=== PATIENT | female | born 2000 | race Caucasian/White ===

== ENCOUNTER 2023-01-04 13:48 | Outpatient (OUT) | payer OTHER, SELFPAY ==
--- NOTE | 2023-01-04 13:57 | US_ITS ---
[place] [id number] Patient Name: ECTOR PEDERSEN MRN: [id number] date: 2000 Sex: F Assigned Patient Location: US Current Patient Location: US Accession/Order Number: [id number] Exam Date: 01/04/2023 13:58 Report Date: 01/04/2023 16:29 At the request of: TIMOTHY LACKEY Procedure: US venous doppler LE RT EXAMINATION: US venous doppler LE RT HISTORY: Pain In Right Lower Leg M79.661 COMPARISON: No relevant comparison available. TECHNIQUE: Grayscale, color and Doppler FINDINGS: Region: Right leg Thrombus: None Flow: Normal Augmentation: Normal Compressibility: Normal In the area of the patient's pain right anterior lateral thigh, no ultrasound abnormality is observed US/US venous doppler LE RT IMPRESSION: No deep or superficial vein thrombus in the right leg *Exam performed in accordance with [facility] practice guidelines- Peripheral venous ultrasound, September 05, 2009. Electronically authenticated by: JUAN ACEVES Date: 01/04/2023 16:29
[2023-01-11 12:09] LABS: HLA B 27 Disease Association Negative (.)
== END 2023-01-04 13:49 | disposition home or self-care (01) ==
LOC: US 13:51
PROVIDERS: PCP Nurse Practitioner Family; Visit Provider Nurse Practitioner Family
DX: M79.661 Pain in right lower leg (principal); R60.9 Edema, unspecified; R53.83 Other fatigue
CPT/HCPCS: 36415; 81374; 93971

== ENCOUNTER 2023-01-15 11:00 | Emergency (ER) | payer OTHER, SELFPAY ==
[2023-01-15 11:04] VITALS: BP 145/90; PULSE 104; RESP 16; TEMP 36.8; O2SAT 96; BMI 34.0
--- NOTE | 2023-01-15 11:44 | ED_ITS ---
HPI - General Adult General Chief complaint: Neck Pain/Injury Stated complaint: STREP THROAT Time Seen by Provider: 01/15/23 11:44 Source: patient Mode of arrival: walk-in Limitations: no limitations History of Present Illness HPI narrative: He presents emergency department complaining of sore throat. Patient states she had a cold this week and had a sore throat since. She states she's had a lot of postnasal drip. She initially thought it was just a cold but since the cold resolved and she still having a sore throat she wants to be checked for strep. She denies any throat swelling or difficulty swallowing. She denies any sick contacts. She denies any myalgias or arthralgias. Eyes any chest pain, shortness of breath. She denies any nausea, vomiting, diarrhea, constipation, abdominal pain. She denies any chest pain, shortness of breath. Denies any flank pain, hematuria, dysuria. Patient denies any headache. Related Data Home Medications Medication Instructions Recorded Confirmed amitriptyline 25 mg tablet 25 mg PO .hs 01/15/23 01/15/23 hyoscyamine sulfate 0.125 mg tablet 0.125 mg PO Q12H 01/15/23 01/15/23 rizatriptan 10 mg tablet 10 mg PO DAILY 01/15/23 01/15/23 trazodone 50 mg tablet 50 mg PO . 01/15/23 01/15/23 Allergies Allergy/AdvReac Type Severity Reaction Status Date / Time No Known Drug Allergies Allergy Verified 01/15/23 11:09 Review of Systems ROS Status of ROS 10 or more systems reviewed and unremarkable except as noted in history and below [facility] Social History Smoking status: Never smoker Exam Narrative Exam Narrative: Nurses notes and vital signs reviewed and patient is not hypoxic. General: Nontoxic, Well-appearing and in no apparent distress. Skin: Warm, dry, no pallor noted. No Rash Head: Normocephalic, atraumatic. Neck: Supple, non-tender. Eye: Pupils are equal, round and EOMI. No scleral icterus. Ears, Nose, Mouth, and Throat: TM clear, Was still oropharynx injected, with postnasal drip. There is no asymmetry. uvula is mid-line Oral mucosa is moist Cardiovascular: Regular Rate and Rhythm without murmur, gallop or rub. Respiratory: No accessory muscle use or respiratory distress. Lungs are clear to auscultation, no wheezing, rales or rhonchi Chest Wall: no tenderness Back: No midline thoracic or lumbar vertebral tenderness. No CVA tenderness Musculoskeletal: normal ROM, no calf or popliteal tenderness, no lower extremity edema/swelling GI: Abdomen is soft, non-distended. Normal bowel sounds. No masses appreciated. No tenderness to palpation. No rebound, guarding, or rigidity noted. Neurological: A&O x4. No cranial nerve dysfunction observed. No truncal ataxia. Moves all extremities. Sensation intact. Psychiatric: Cooperative and interactive. Normal mood and affect. Constitutional Vital Signs, click to edit/add: Last Vital Signs Temp 98.2 F 01/15/23 11:04 Pulse 104 H 01/15/23 11:04 Resp 16 01/15/23 11:04 BP 145/90 H 01/15/23 11:04 Pulse Ox 96 01/15/23 11:04 O2 Del Method Room Air 01/15/23 11:04 Course Vital Signs Vital signs: Vital Signs Temperature 98.2 F 01/15/23 11:04 Pulse Rate 104 H 01/15/23 11:04 Respiratory Rate 16 01/15/23 11:04 Blood Pressure 145/90 H 01/15/23 11:04 Pulse Oximetry 96 01/15/23 11:04 Oxygen Delivery Method Room Air 01/15/23 11:04 Temperature 98.2 F 01/15/23 11:04 Pulse Rate 104 H 01/15/23 11:04 Respiratory Rate 16 01/15/23 11:04 Blood Pressure 145/90 H 01/15/23 11:04 Pulse Oximetry 96 01/15/23 11:04 Oxygen Delivery Method Room Air 01/15/23 11:04 Medical Decision Making MDM Narrative Medical decision making narrative: Strep test was negative. [place] test was done. The patient has roll negative. She is advised to use conservative [id number] lozenges and topical spray. At this time the patient is without objective evidence of an acute process requiring hospitalization or inpatient management. The patient has remained hemodynamically stable. No additional indication for emergent studies at this time. I answered all questions. Discussed discharge instructions including standard anticipatory guidance and what should prompt a return to the emergency department, including if they get worse are not getting better or develops any new or concerning symptoms. I've given them specific time frame in which to follow-up, and who to follow-up with. The patient demonstrates understanding. Patient is nontoxic and stable for discharge with outpatient follow-up. This note was created with the assistance of a speech recognition program. Although the intention is to generate documents that actually reflects the content of the visit, no guarantees can be provided that every mistake has been identified and corrected by editing. Lab Data Lab results reviewed: Yes I reviewed the patient's lab results Labs: Lab Results 01/15/23 01/15/23 Range/Units 11:12 12:35 Monoscreen Negative (NEGATIVE) Streptococcus Screen Negative Discharge Plan Discharge Chief Complaint: Neck Pain/Injury Clinical Impression: Pharyngitis Patient Disposition: Home, Self-Care Time of Disposition Decision: 13:36 Condition: Good Mode of Transportation: Private Vehicle Prescriptions / Home Meds: No Action trazodone 50 mg tablet 50 mg PO .hs amitriptyline 25 mg tablet 25 mg PO .hs hyoscyamine sulfate 0.125 mg tablet 0.125 mg PO Q12H rizatriptan 10 mg tablet 10 mg PO DAILY Instructions: Pharyngitis (ED) Stand Alone Forms: Portal Instructions Referrals: TIMOTHY LACKEY [Primary Care Provider] - 1 week Discharge Date/Time: 01/15/23 13:42
[2023-01-15 13:05] LABS: Mono Screen NEGATIVE (NEGATIVE)
[2023-01-15 14:22] LABS: Internal Control Within Normal Limits; Strep A Antigen Screen Negative
== END 2023-01-15 13:42 | disposition home or self-care (01) ==
PROVIDERS: Emergency Provider Emergency Medicine; PCP Nurse Practitioner Family
DX: J02.9 Acute pharyngitis, unspecified (principal); Z79.899 Other long term (current) drug therapy
CPT/HCPCS: 86308; 87070; 87880; 99283

== ENCOUNTER 2023-11-09 11:09 | Outpatient (OUT) | payer OTHER, SELFPAY ==
[2023-11-09 12:02] LABS: Basophils Absolute Auto 0.1 10^3/uL (0.0-0.1); Basophils Percent Auto 0.5 % (0.2-2.0); Eosinophils Absolute Auto 0.2 10^3/uL (0.0-0.7); Eosinophils Percent Auto 1.5 % (0.9-7.0); Hematocrit 40.7 % (36.0-48.0); Hemoglobin 12.8 g/dL (12.0-16.0); Immature Granulocytes Abs Auto 0.04 10^3/uL (0.00-0.03); Immature Granulocytes Pct Auto 0.4 % (0.0-0.5); Lymphocytes Absolute Auto 3.5 10^3/uL (1.2-3.8); Lymphocytes Percent Auto 31.3 % (20.5-60.0); Mean Corpuscular HGB Conc 31.4 g/dL (29.9-35.2); Mean Corpuscular Hemoglobin 27.6 pg (26.7-34.0); Mean Corpuscular Volume 87.7 fL (81.0-99.0); Mean Platelet Volume 10.4 fL (9.5-13.5); Monocytes Absolute Auto 0.8 10^3/uL (0.3-0.8); Monocytes Percent Auto 6.8 % (1.7-12.0); Neutrophils Absolute Auto 6.6 10^3/uL (1.4-6.5); Neutrophils Percent Auto 59.5 % (43.0-75.0); Platelet Count 302 10^3/uL (150-450); Red Blood Count 4.64 10^6/uL (4.20-5.40); Red Cell Distribution Width 13.6 % (11.0-15.0); White Blood Count 11.1 10^3/uL (4.0-11.0)
[2023-11-09 12:22] LABS: Alanine Aminotransferase 23 U/L (14-59); Albumin Globulin Ratio 0.9; Albumin Level 3.9 g/dL (3.4-5.0); Alkaline Phosphatase 82 U/L (46-116); Anion Gap 13.2; Aspartate Amino Transferase 12 U/L (15-37); BUN Creatinine Ratio 10.6; Bilirubin Total 0.3 mg/dL (0.2-1.0); Calcium 9.1 mg/dL (8.5-10.1); Carbon Dioxide 28.3 mmol/L (21.0-32.0); Chloride 104 mmol/L (98-107); Cholesterol 144 mg/dL (<=200); Estimated GFR (African America >60 (>=60); Estimated GFR (Non-African Ame >60 (>=60); Free T3 2.58 pg/mL (2.18-3.98); Globulin 4.2 g/dL; Glucose 97 mg/dL (74-106); HDL Cholesterol 36 mg/dL (40-60); Potassium 4.5 mmol/L (3.5-5.1); Sodium 141 mmol/L (136-145); Thyroid Stimulating Hormone 2.877 uIU/mL (0.358-3.740); Total Protein 8.1 g/dL (6.4-8.2); Triglycerides 40 mg/dL (<=150)
[2023-11-09 13:09] LABS: Estimated Average Glucose 105 mg/dL; Glycohemoglobin A1C 5.3 % (4.5-6.2)
[2023-11-10 11:11] LABS: Insulin 39.5 uIU/mL (2.6-24.9)
== END 2023-11-09 11:10 | disposition home or self-care (01) ==
LOC: LAB 11:11
PROVIDERS: PCP Nurse Practitioner Family; Visit Provider Nurse Practitioner Family
DX: Z00.00 Encounter for general adult medical examination without abnormal findings (principal)
CPT/HCPCS: 36415; 80053; 80061; 83036; 83525; 84436; 84443; 84481; 85025